=== PATIENT | male | born 1995 | race Caucasian/White ===

== ENCOUNTER 2024-01-21 07:17 | Emergency (ER) | payer OTHER ==
[~2024-01-21] VITALS: Ht 165.1 cm; Wt 95.7 kg
[2024-01-21 07:21] VITALS: BP 131/65; PULSE 67; RESP 16; TEMP 96.5; O2SAT 96
[2024-01-21] MEDS ORDERED: DEXT1LOZ PO (07:40)
[2024-01-21] MEDS ORDERED: NAPR-1704 PO (07:40)
[2024-01-21 08:01] VITALS: BP 126/70; PULSE 70; RESP 18; TEMP 98.3; O2SAT 97
[2024-01-21] MEDS ORDERED: PENI500T20 PO (08:53)
== END 2024-01-21 08:00 | disposition home or self-care (01) ==
LOC: MED 07:17
DX: J03.90 Acute tonsillitis, unspecified (principal); Z79.899 Other long term (current) drug therapy
CPT/HCPCS: 87081; 99283

== ENCOUNTER 2024-04-16 13:16 | Emergency (ER) | payer OTHER ==
[~2024-04-16] VITALS: Ht 167.6 cm; Wt 94.3 kg
[~2024-04-16 13:16] MED LIST: DEXT1LOZ PO; NAPR-1704 PO; PENI500T20 PO
[2024-04-16 13:31] VITALS: BP 104/50; PULSE 91; RESP 19; TEMP 98.9; O2SAT 95
[2024-04-16] MEDS ORDERED: ONDA-188 PO (14:22)
[2024-04-16 14:35] VITALS: BP 111/61; PULSE 84; RESP 16; TEMP 98.9; O2SAT 98
== END 2024-04-16 14:34 | disposition home or self-care (01) ==
LOC: MED 13:16
DX: R11.2 Nausea with vomiting, unspecified (principal); R19.7 Diarrhea, unspecified; F12.90 Cannabis use, unspecified, uncomplicated; Z79.2 Long term (current) use of antibiotics; Z79.1 Long term (current) use of non-steroidal anti-inflammatories (NSAID); Z79.899 Other long term (current) drug therapy
CPT/HCPCS: 99283

== ENCOUNTER 2024-06-19 07:13 | Emergency (ER) | payer OTHER ==
[~2024-06-19] VITALS: Ht 167.6 cm; Wt 99.3 kg
[~2024-06-19 07:13] MED LIST changes: +ONDA-188 PO
[2024-06-19 07:20] VITALS: BP 102/50; PULSE 67; RESP 18; O2SAT 96
[2024-06-19] MEDS ORDERED: [UNRECOGNIZED DRUG - CODE] PO (07:48)
[2024-06-19] MEDS ORDERED: NAPR-337 PO (07:48)
[2024-06-19] MEDS ORDERED: LORA1T1237 PO (07:48)
[2024-06-19] MEDS: KETOROLAC 30 MG/ML VIAL IM ONE (07:59)
[2024-06-19 08:18] LABS: FLU A ANTIGEN negative (NEGATIVE); FLU B ANTIGEN negative (NEGATIVE)
== END 2024-06-19 08:05 | disposition home or self-care (01) ==
LOC: MED 07:13
DX: J06.9 Acute upper respiratory infection, unspecified (principal); B97.89 Other viral agents as the cause of diseases classified elsewhere; Z20.822 Contact with and (suspected) exposure to COVID-19; Z79.899 Other long term (current) drug therapy
CPT/HCPCS: 87081; 87426; 87804; 96372; 99283; J1885